=== PATIENT | male | born 1995 | race Caucasian/White ===

== ENCOUNTER 2017-05-12 10:07 | Emergency (ER) | payer BC ==
[~2017-05-12] VITALS: Ht 175.3 cm; Wt 83.0 kg
[~2017-05-12 10:07] MED LIST: BACLOFEN10 MG PO; LORTAB 5-325 M1 EACH PO; MOTRIN600 MG PO
[2017-05-12 11:25] VITALS: BP 131/85
== END 2017-05-12 11:26 | disposition home or self-care (01) ==
LOC: EME 10:07
DX: S00.93XA Contusion of unspecified part of head, initial encounter (principal); F07.81 Postconcussional syndrome; Y09 Assault by unspecified means; F17.200 Nicotine dependence, unspecified, uncomplicated
CPT/HCPCS: 70450; 99281; 99282